=== PATIENT | female | born 1980 | race Two or more races ===

== ENCOUNTER 2016-05-10 10:27 | Emergency (ER) | payer SELFPAY ==
[2016-05-10] MEDS ORDERED: ZOFRAN INJ 4 MG VIAL ONE ×2 (10:33→12:01)
[2016-05-10] MEDS ORDERED: NS 1000 ML 1,000 ML ONE (10:33)
[2016-05-10] MEDS ORDERED: MORPHINE SULFATE INJ 4 MG IVP ONE (10:36)
[2016-05-10] MEDS ORDERED: BENTYL I.M. INJ 10 MG IM ONE ×2 (10:38→10:46)
[2016-05-10] MEDS ORDERED: MORPHINE SULFATE INJ 4 MG ONE (10:39)
[2016-05-10] MEDS ORDERED: ZOFRAN INJ 4 MG VIAL IVP ONE ×2 (10:43→12:00)
[2016-05-10] MEDS ORDERED: NS 1000 ML 1,000 ML IV ONE (10:44)
--- NOTE | 2016-05-10 10:46 | DR.GENAD ---
HPI - Complaint/Symptoms Chief Complaint Doctors Comments: Patient states that she has stomach pain since last night associated with nausea and vomiting. Her pain levevel in 10, quality sharp, duration since last night modifying factor eating. PMH - PMH Surgical History: ROS - Review of Systems Constitutional: No Symptoms Reported Eyes: No Symptoms Reported ENTM: No Symptoms Reported Respiratoy: No Symptoms Reported Cardiovascular: No Symptoms Reported Gastrointestinal/Abdominal: Abdominal Pain, Nausea, Vomiting Genitourinary: No Symptoms Reported Neurological: No Symptoms Reported Musculoskeletal: No Symptoms Reported Integumentary: No Symptoms Reported Hematologic/Lymphatic: No Symptoms Reported Endocrine: No Symptoms Reported Psychiatric: Anxiety All Other Systems: Reviewed and Negative PE - Vital Signs Vitals: Temperature 99.5 F Pulse Rate 101 Respiratory Rate 18 Blood Pressure 114/75 O2 Sat by Pulse Oximetry 99 - General Limitations: No Limitations General Appearance: Alert, Anxious, In Distress - Head Head Exam: Normal Inspection, Atraumatic - Eyes Eye exam: Normal Appearance, PERRL, EOMI - ENT ENT Exam: Normal Exam External Ear Exam: Normal External Inspection TM/Canal Exam: Bilateral Normal Nose Exam: Normal Nose Exam Mouth Exam: Normal Inspection Throat Exam: Normal Inspection - Neck Neck Exam: Normal Inspection - Chest Chest Inspection: Normal Inspection, Symmetric Chest Wall Rise - Respiratory Respiratory Exam: Normal Lung Sounds Bilat Respiratory Exam: Bilateral Clear to Auscultation - Cardiovascular Cardiovascular Exam: Regular Rate, Normal Rhythm - Abdominal Exam Abdominal Exam: Normal Inspection, Tenderness Abdominal Tenderness: Epigastrium - Extremities Extremities Exam: Normal Inspection, Full ROM - Back Back Exam: Normal Inspection. negative: (R) CVA Tenderness, (L) CVA Tenderness , Muscle Spasm - Neurologic Neurological Exam: Alert, Oriented X3, CN II-XII Intact - Psychiatric Psychiatric Exam: Normal Affect - Skin Skin Exam: Warm, Dry, Intact, Normal Color Course - Treatment Treatment: NS, morphine,dicyclomine,zofran - Reevaluation 1st: Improved - Consultation Called: 13:10 (Admit) ROR - Labs Reviewed Laboratory Results Reviewed?: Yes (H pylori positive) Result Diagrams: 05/10/16 10:50 05/10/16 10:50 Laboratory: WBC 14.3 X10^3/uL (3.6-10.0) H 05/10/16 10:50 RBC 4.12 X10^6/uL (3.5-5.4) 05/10/16 10:50 Hgb 12.4 g/dL (12.0-16.0) 05/10/16 10:50 Hct 35.5 % (36.0-47.0) L 05/10/16 10:50 MCV 86.2 fL (80.0-100.0) 05/10/16 10:50 MCH 30.0 pg (27.0-34.0) 05/10/16 10:50 MCHC 34.7 g/dL (33.0-35.0) 05/10/16 10:50 RDW 12.2 % (11.6-16.5) 05/10/16 10:50 Plt Count 253 X10^3/uL (150.0-450.0) 05/10/16 10:50 Plt Count Comment Adequate (ADEQUATE) 05/10/16 10:50 MPV 8.0 fL (7.4-11.0) 05/10/16 10:50 Neut % 91.2 % (42.0-75.0) H 05/10/16 10:50 Lymph % 4.4 % (21.0-51.0) L 05/10/16 10:50 Candler % 4.2 % (0.0-13.0) 05/10/16 10:50 Eos % 0.0 % (0.9-2.9) L 05/10/16 10:50 Baso % 0.2 % (0.2-1.0) 05/10/16 10:50 Neut # 13.0 x10^3/uL (2.2-4.8) H 05/10/16 10:50 Lymph # 0.6 X10^3/uL (1.3-2.9) L 05/10/16 10:50 Candler # 0.6 x10^3/uL (0.3-0.8) 05/10/16 10:50 Eos # 0.0 x10^3/uL (0.0-0.2) 05/10/16 10:50 Baso # 0.0 X10^3/uL (0.0-0.1) 05/10/16 10:50 Absolute Nucleated RBC 0.0 /100WBC 05/10/16 10:50 Total Counted 100 05/10/16 10:50 Neutrophils % (Manual) 92 % (39-76) H 05/10/16 10:50 Lymphocytes % (Manual) 6 % (13-43) L 05/10/16 10:50 Monocytes % (Manual) 2 % (4-9) L 05/10/16 10:50 Plt Morphology Comment Normal (NORMAL) 05/10/16 10:50 RBC Morphology Normal (NORMAL) 05/10/16 10:50 Sodium 141 mmol/L (136-145) 05/10/16 10:50 Corrected Sodium TNP 05/10/16 10:50 Potassium 3.3 mmol/L (3.5-5.1) L 05/10/16 10:50 Chloride 105 mmol/L (98-107) 05/10/16 10:50 Carbon Dioxide 23.1 mmol/L (21-32) 05/10/16 10:50 BUN 6 mg/dL (7-18) L 05/10/16 10:50 Creatinine 0.64 mg/dL (0.55-1.02) 05/10/16 10:50 Est GFR (MDRD) Af Amer > 60 (>60) 05/10/16 10:50 Est GFR (MDRD) Non-Af > 60 (>60) 05/10/16 10:50 Glucose 106 mg/dL (65-99) H 05/10/16 10:50 Calcium 8.7 mg/dL (8.5-10.1) 05/10/16 10:50 Corrected Calcium TNP 05/10/16 10:50 Total Bilirubin 0.60 mg/dL (0.2-1.0) 05/10/16 10:50 AST 14 Units/L (15-37) L 05/10/16 10:50 ALT 17 Units/L (12-78) 05/10/16 10:50 Alkaline Phosphatase 65 Units/L (46-116) 05/10/16 10:50 C-Reactive Protein 33.00 mg/L (0-3.0) H 05/10/16 10:50 Total Protein 7.3 g/dL (6.4-8.2) 05/10/16 10:50 Albumin 4.1 g/dL (3.4-5.0) 05/10/16 10:50 Globulin 3.2 g/dL (2.5-4.5) 05/10/16 10:50 Albumin/Globulin Ratio 1.3 Ratio (1.1-2.1) 05/10/16 10:50 Amylase 60 Units/L (25-115) 05/10/16 10:50 Lipase 153 Units/L (73-393) 05/10/16 10:50 H. pylori IgG Antibody Positive (NEGATIVE) A 05/10/16 10:50 - XRAY XRAY Interpreted by: Radiologist (Abdomen: The liever, spleen, gallbladder, andrenal glands, pancreas, stomach and small bowel are normal. The appendix is normal, No acute colonic abnormality seen. Vasculature is free or plaque. The kidneys are normal without hydroureteronephrosis. Minimal oral contrast seen in the stomach only. Pelvis: urinayr bladder, rectum and uterus are normal. No adnexal region lesion seen. Impression: No acute abdomen or pelvis abnormality.) - Diagnosis Discharge Problem: Acute abdominal pain, Helicobacter pylori gastritis - Discharge Plan Condition: Stable - Follow ups/Referrals Follow ups/Referrals: NFD,None [Primary Care Provider] - 3 days - Instructions
[2016-05-10] MEDS: ZANTAC INJ 50 MG in NS 50 ML IV 50 ML IV SCH ×3 (10:59→22:06)
[2016-05-10 11:06] LABS: BASOPHILS % (AUTO) 0.2 % (0.2-1.0); HEMATOCRIT 35.5 % (36.0-47.0); HEMOGLOBIN 12.4 g/dL (12.0-16.0); LYMPHOCYTES # (AUTO) 0.6 X10^3/uL (1.3-2.9); LYMPHOCYTES % (AUTO) 4.4 % (21.0-51.0); MEAN CORPUSCULAR HGB CONC 34.7 g/dL (33.0-35.0); MEAN CORPUSCULAR VOLUME 86.2 fL (80.0-100.0); MONOCYTES # (AUTO) 0.6 x10^3/uL (0.3-0.8); MONOCYTES % (AUTO) 4.2 % (0.0-13.0); NEUTROPHILS % (AUTO) 91.2 % (42.0-75.0); PLATELET COUNT 253 X10^3/uL (150.0-450.0); RED BLOOD COUNT 4.12 X10^6/uL (3.5-5.4); RED CELL DISTRIBUTION WIDTH 12.2 % (11.6-16.5); WHITE BLOOD COUNT 14.3 X10^3/uL (3.6-10.0)
[2016-05-10 11:18] LABS: ALANINE AMINOTRANSFERASE 17 Units/L (12-78); ALBUMIN 4.1 g/dL (3.4-5.0); ALKALINE PHOSPHATASE 65 Units/L (46-116); ASPARTATE AMINO TRANSFERASE 14 Units/L (15-37); BLOOD UREA NITROGEN 6 mg/dL (7-18); CALCIUM 8.7 mg/dL (8.5-10.1); CARBON DIOXIDE 23.1 mmol/L (21-32); CHLORIDE 105 mmol/L (98-107); CREATININE 0.64 mg/dL (0.55-1.02); GLUCOSE 106 mg/dL (65-99); SODIUM 141 mmol/L (136-145); TOTAL PROTEIN 7.3 g/dL (6.4-8.2); eGFR BLACK RACES > 60 (>60); eGFR NON BLACK RACES > 60 (>60)
[2016-05-10 11:21] LABS: PLATELET MORPHOLOGY COMMENT NORMAL (NORMAL)
[2016-05-10] MEDS ORDERED: MORPHINE SULFATE INJ 2 MG IVP ONE (11:55)
[2016-05-10] MEDS ORDERED: MORPHINE SULFATE INJ 2 MG ONE (11:56)
[2016-05-10] MEDS ORDERED: NS 1000 ML 1,000 ML IV SCH (12:00)
--- NOTE | 2016-05-10 12:45 | CT ---
CT abdomen and pelvis without contrast Indication: Abdominal pain with nausea, vomiting and diarrhea. Technique: Helical images through the abdomen and pelvis without contrast. Coronal and sagittal refo rmats provided. Oral contrast given Findings: Limited images through lower chest shows no acute abnormality. Review of bone windows show s no osseous lesion. Abdomen: The liver, spleen, gallbladder, adrenal glands, pancreas, stomach and small bowel are juno l. The appendix is normal. No acute colonic abnormality seen. Vasculature is free of plaque. The kid neys are normal without hydroureteronephrosis. Minimal oral contrast seen in the stomach only Pelvis: Urinary bladder, rectum and uterus are normal. No adnexal region lesion seen. Impression: No acute abdomen or pelvis abnormality. Reported By:
[2016-05-10] MEDS ORDERED: LEVSIN/MAALOX/LIDOC VISC PO PRN (14:19)
[2016-05-10] MEDS ORDERED: REGLAN INJ 10 MG VIAL IVP PRN (14:22)
[2016-05-10] MEDS ORDERED: MORPHINE SULFATE INJ 4 MG IVP PRN (14:23)
[2016-05-10 14:51] VITALS: BMI 21.0
[2016-05-10] MEDS: PROTONIX INJ 40 MG VIAL 80 MG in NS 100 ML IV 80 ML IV SCH (15:24)
[2016-05-10] MEDS: NS 1000 ML 1,000 ML with POTASSIUM CHLORIDE INJ 20 MEQ VIAL 20 MEQ IV SCH ×4 (15:30→23:29)
[2016-05-10] MEDS: NS + KCL 20 MEQ/L 1,000 ML IV SCH (23:28)
[2016-05-11] MEDS: PROTONIX INJ 40 MG VIAL 80 MG in NS 100 ML IV 80 ML IV SCH ×2 (00:25→11:04)
[2016-05-11] MEDS ORDERED: TYLENOL 325 MG TAB PO PRN (01:45)
[2016-05-11 03:49] LABS: BASOPHILS % (AUTO) 0.3 % (0.2-1.0); HEMATOCRIT 31.6 % (36.0-47.0); HEMOGLOBIN 10.9 g/dL (12.0-16.0); LYMPHOCYTES # (AUTO) 0.9 X10^3/uL (1.3-2.9); LYMPHOCYTES % (AUTO) 5.9 % (21.0-51.0); MEAN CORPUSCULAR HEMOGLOBIN 29.9 pg (27.0-34.0); MEAN CORPUSCULAR HGB CONC 34.4 g/dL (33.0-35.0); MEAN CORPUSCULAR VOLUME 86.9 fL (80.0-100.0); MEAN PLATELET VOLUME 8.1 fL (7.4-11.0); MONOCYTES # (AUTO) 1.1 x10^3/uL (0.3-0.8); MONOCYTES % (AUTO) 7.4 % (0.0-13.0); NEUTROPHILS # (AUTO) 13.3 x10^3/uL (2.2-4.8); NEUTROPHILS % (AUTO) 86.4 % (42.0-75.0); PLATELET COUNT 224 X10^3/uL (150.0-450.0); RED BLOOD COUNT 3.63 X10^6/uL (3.5-5.4); RED CELL DISTRIBUTION WIDTH 12.5 % (11.6-16.5); WHITE BLOOD COUNT 15.4 X10^3/uL (3.6-10.0)
[2016-05-11 03:59] LABS: ALANINE AMINOTRANSFERASE 12 Units/L (12-78); ALBUMIN 3.1 g/dL (3.4-5.0); ALKALINE PHOSPHATASE 54 Units/L (46-116); ASPARTATE AMINO TRANSFERASE 10 Units/L (15-37); BLOOD UREA NITROGEN 5 mg/dL (7-18); CALCIUM 7.9 mg/dL (8.5-10.1); CARBON DIOXIDE 22.2 mmol/L (21-32); CHLORIDE 108 mmol/L (98-107); COR CA(FOR HYPOALB) 8.6 mg/dL (8.5-10.1); CREATININE 0.64 mg/dL (0.55-1.02); GLUCOSE 99 mg/dL (65-99); SODIUM 142 mmol/L (136-145); TOTAL PROTEIN 6.2 g/dL (6.4-8.2); eGFR BLACK RACES > 60 (>60); eGFR NON BLACK RACES > 60 (>60)
[2016-05-11] MEDS: ZANTAC INJ 50 MG in NS 50 ML IV 50 ML IV SCH (05:35)
[2016-05-11] MEDS: NS + KCL 20 MEQ/L 1,000 ML IV SCH (09:03)
[2016-05-11] MEDS ORDERED: MUCINEX EXPECTORANT PO SCH (10:00)
[2016-05-11 12:21] VITALS: BP 126/79
--- NOTE | 2016-05-11 13:00 | DR.CARTERS ---
Short Stay Summary - Short Stay Summary for: Short Stay Summary for Date of:: 05/11/16 - Admission Date Date of Admission: 05/10/16 - Discharge Date Discharge Date: 05/11/16 - Admission Diagnoses (1) Acute abdominal pain Status: Acute (2) Nausea & vomiting Status: Acute (3) Helicobacter pylori gastritis Status: Acute (4) Dehydration Status: Acute - Hospital Course Hospital Course: DAY ONE OF HOSPITAL STAY, PATIENT PRESENTED TO THE EMERGENCY ROOM WITH COMPLAINTS OF ACUTE ABDOMINAL PAIN ALONG WITH NAUSEA AND VOMITING. PATIENT REPORTED ABDOMINAL PAIN SINCE THE EVENING OF 05/09/16. SHE REPORTED ABDOMINAL PAIN WAS A 10 ON A 1-TO-10 PAIN SCALE. SHE DESCRIBED ABDOMINAL PAIN SHARP, CONSTANT. PATIENT WAS UNABLE TO RETAIN PO FLUIDS. ON PALPATION, ABDOMEN IS NOTED WITH SEVERE TENDERNESS TO EPIGASTRIC REGION. LABS, CT OBTAINED. CBC WNL EXCEPT: WBC 14.3, HCT 35.5. CMP WNL EXCEPT: POTASSIUM 3.3, GLUCOSE 106. CRP 33.0. H-PYORI POSITIVE. CT OF ABD/PELVIS REPORTS: NO ACUTE ABDOMEN OR PELVIS ABNORMALITY. PATIENT RECEIVED IV FLUIDS, MORPHINE, BENTYL, AND ZOFRAN IN THE EMERGENCY ROOM. PATIENT WAS STARTED ON A PROTONIX DRIP AND ZANTAC IV TID. WE ADMITTED PATIENT FOR FURTHER EVALUATION AND TREATMENT. DAY TWO OF HOSPITAL STAY, PATIENT REPORTED SHE WAS FEELING BETTER. SHE STATED NAUSEA HAD SUBSIDED, HOWEVER; SHE DID REPORTS A MOIST COUGH WITH SMALL AMOUNT OF GREENISH-YELLOW SPUTUM. PATIENT HAS HAD LOW-GRADE FEVER OF 100.6. WE HAD CONSULTED DR. ORTEGA IN RELATION TO ABDOMINAL PAIN WITH NAUSEA AND VOMITING, BUT ; WILL WAIT ON EGD UNTIL WHITE BLOOD CELL COUNT IS NORMAL AND PATIENT IS WITHOUT FEVER. CBC WNL EXCEPT: WBC 15.4, H/H 10.9/31.6. CMP WNL EXCEPT: POTASSIUM 3.3, CHL 108, CALCIUM 7.9, TOT PROTEIN 6.2, ALBUMIN 3.1. WE PLANNED FOR DISCHARGE. WE ARE DISCHARGING PATIENT WITH PROTONIX BID, PEPCID BID, MUCINEX, ZOFRAN, AND GI COCKTAIL. PATIENT IS TO FOLLOW UP IN OUR OFFICE IN ONE WEEK. INSTRUCTIONS FOR MEDICATIONS AND FOLLOW UP WERE GIVEN TO PATIENT AND , BOTH VOICED UNDERSTANDING. PATIENT WAS DISCHARGED HOME IN STABLE CONDITION WITH . - Discharge Medications Discharge Medications: Gi Cocktail [LEVSIN/Maalox/Lidoc Visc (GI COCKTAIL) *] 30 ml PO QID PRN #240 ml 05/11/16 [Rx] Guaifenesin Ext Rel [Mucinex Expectorant] 600 mg PO Q12H #20 tab.sr.12h [Rx] Ondansetron [Zofran Odt] 4 mg PO Q8H PRN #30 tab 05/11/16 [Rx] Pantoprazole Sodium 40 mg [PROTONIX 40 MG *] 40 mg PO BID #60 tab 05/11/16 [Rx] Ranitidine HCl [ZANTAC TAB 150 MG *] 150 mg PO BID PRN #60 tab 05/11/16 [Rx] - Discharge Plan Disposition: 01 HOME, SELF-CARE Condition: Stable Prescriptions: Gi Cocktail [LEVSIN/Maalox/Lidoc Visc (GI COCKTAIL) *] 30 ml PO QID PRN #240 ml PRN Reason: Guaifenesin Ext Rel [Mucinex Expectorant] 600 mg PO Q12H #20 tab.sr.12h Ondansetron [Zofran Odt] 4 mg PO Q8H PRN #30 tab PRN Reason: Nausea/Vomiting Pantoprazole Sodium 40 mg [PROTONIX 40 MG *] 40 mg PO BID #60 tab Ranitidine HCl [ZANTAC TAB 150 MG *] 150 mg PO BID PRN #60 tab PRN Reason: - Follow up/Referrals Follow up/Referrals: Selvin Crawford [STAFF PHYSICIAN] - 05/18/16 9:00 am MARIA DEL ROSARIO ORTEGA [STAFF PHYSICIAN] - 6 WEEKS - Instructions Instructions: Ranitidine tablets or capsules, Gastritis, Adult, Abdominal Pain , Adult, [id number], Rehydration, Adult, Helicobacter Pylori Antibodies Test, Pantoprazole tablets, Guaifenesin oral ER tablets Additional Instructions: ACTIVITY TOLERATED. DIET TOLERATED. REFERRAL SENT TO DR. ORTEGA'S OFFICE. DR. ORTEGA'S OFFICE WILL CONTACT PATIENT WITH APPOINTMENT DATE AND TIME. Forms: Patient Portal
== END 2016-05-11 12:16 | disposition home or self-care (01) ==
LOC: ER 10:59 → ICU 14:18 → MED/SURG 20:27
PROVIDERS: ADMIT Internal Medicine; ATTEND Internal Medicine
DX: R10.84 Generalized abdominal pain (principal); R11.2 Nausea with vomiting, unspecified; K29.60 Other gastritis without bleeding; B96.81 Helicobacter pylori [H. pylori] as the cause of diseases classified elsewhere; E86.0 Dehydration; D72.828 Other elevated white blood cell count
CPT/HCPCS: 36415; 74176; 80053; 82150; 83690; 85025; 86140; 86677; 96365; 96367; 96372; 96374; 96375; 99284; A4216; A4222; C9113; G0378; J0500; J2270; J2405; J2765; J2780; J3480